=== PATIENT | male | born 1995 | race Caucasian/White ===

== ENCOUNTER 2021-03-18 22:13 | Emergency (ER) | payer BC ==
[~2021-03-18] VITALS: Ht 177.8 cm; Wt 90.7 kg
[2021-03-18 22:15] VITALS: BP_SYST 136
--- NOTE | 2021-03-18 22:15 | NUR ---
PT TO REMAIN IN ER UNTIL ER BED BECOMES AVAILABLE.
--- NOTE | 2021-03-18 22:20 | NUR ---
PT [facility]O AND AMBULATORY BIB [facility] FOR MEDICAL CLEARANCE TO BOOK. PT DENIES HAVING ANY COMPLAINTS CURRENTLY AND 0/10 PAIN.
--- NOTE | 2021-03-18 23:00 | NUR ---
DR. URBINA AT BEDSIDE TO ASSESS.
[2021-03-18 23:49] VITALS: BP_SYST 136
--- NOTE | 2021-03-18 23:50 | NUR ---
Patient given written and verbal discharge instructions and verbalizes understanding. DR. CIRAA KRAFT MD discussed with patient the results and treatment provided. Patient in stable condition. ID arm band removed. Rx of given. Patient educated on pain management and to follow up with PMD. Pain Scale 0/10. Opportunity for questions provided and answered. Medication side effect fact sheet provided.
== END 2021-03-18 23:50 ==
LOC: SED 22:13
DX: Z02.89 Encounter for other administrative examinations (principal)
CPT/HCPCS: 99283